=== PATIENT | female | born 1990 | race Caucasian/White ===

== ENCOUNTER 2021-04-24 06:55 | Day surgery (SDC) | payer OTHER ==
[~2021-04-24] VITALS: Ht 165.1 cm; Wt 104.5 kg
[~2021-04-24 06:55] MED LIST: CLARITIN-D 241 EACH; MULTI VITAMIN1 EACH
[2021-04-24] MEDS ORDERED: IBUPROFEN600 MG PO (09:15)
[2021-04-24] MEDS ORDERED: OXYCODON-ACETA1 EAC2 PO (09:16)
[2021-04-24] MEDS ORDERED: ACETAMINOPHEN500 MG PO (09:16)
--- NOTE | 2021-04-24 09:33 | NUR ---
04/24/21 0933 Marla Aguilera 0859- PT ARRIVES TO PACU NONAROUSABLE TO NOXIOUS STIMULI WITH AN OPA IN PLACE. RESP EVEN AND UNLABORED. OXYGEN SAT HIGH 90'S TO 100% ON 8L VIA MASK.
--- NOTE | 2021-04-24 17:39 | NUR ---
1200 PT HAS BEEN UP AMB. DOING WELL. TAKING JELLO AND DRINKING FLUIDS. MOM HERE TO GET PT.
--- NOTE | 2021-04-25 09:44 | OR ---
[facility] [address], [place] [address] Signed DATE OF OPERATION: 04/24/2021 SURGEON: Louis Strickland MD PREOPERATIVE DIAGNOSIS: Chronic acalculous cholecystitis (ejection fraction CCK-HIDA test 0% with reproduction of symptoms). POSTOPERATIVE DIAGNOSIS: Chronic acalculous cholecystitis (ejection fraction CCK-HIDA test 0% with reproduction of symptoms). PROCEDURES: 1. Laparoscopic cholecystectomy with intraoperative cholangiogram. 2. Surgeon-directed fluoroscopy. ANESTHESIA: General endotracheal, [place]oo [place], [employer] and local 20 mL of 0.25% Marcaine with epinephrine. INDICATION: This 30-year-old white woman is a patient of Funmilayo Jean and has had typical symptoms of biliary colic including right subcostal and right subscapular pain worse following fatty food. Gallbladder ultrasound was performed on February 13, 2021 which was normal. She underwent a CCK-HIDA test on March 04 showing essentially no ejection fraction. She did experience symptoms during the injection as well. She has additionally undergone a CT scan, which was said to be normal and she has been empirically treated for a urinary tract infection, which made no impact on her symptoms. She is admitted at this time to undergo cholecystectomy for acalculous cholecystitis. She understands the risks of bleeding, infection, bile duct injury, and other unforeseen complications and wishes to proceed. FINDINGS: The liver was mildly fatty infiltrated. The patient does have abdominal obesity. The gallbladder was chronically inflamed. Once excised, it showed no evidence of stones, only chronic inflammatory change of the mucosa. Cholangiogram was entirely normal. DESCRIPTION OF PROCEDURE: The patient was brought to the operating room, given a general endotracheal anesthetic. Preoperative antibiotic Ancef was given. Sequential compression device stockings were Electronically Signed By: LOUIS STRICKLAND MD 04/25/21 0944 PATIENT NAME: ROJELIO VENTURA OPERATIVE REPORT DATE OF : 89 REPORT #: [id number] PHYSICIAN: LOUIS STRICKLAND MD PCP: FUNMILAYO JEAN PA-C REPORT IS CONFIDENTIAL AND NOT TO BE RELEASED WITHOUT AUTHORIZATION [facility] [address], [place] [address] Signed used and heparin subcutaneously administered. The abdomen was prepared with a chlorhexidine solution and draped sterilely. An infraumbilical incision was made and using an open Asim cannula technique, pneumoperitoneum was achieved to a level of 14 mmHg with carbon dioxide gas. Intraabdominal inspection showed no ascites or carcinomatosis. The gallbladder was largely obscured from view. Three additional trocars were placed in usual configuration in the subxiphoid, right midclavicular, and right anterior axillary line. The gallbladder was elevated cephalad and found to have a few filmy adhesions to the infundibulum. The gallbladder was retracted more fully cephalad and the infundibulum grasped and retracted laterally. Using blunt electrocautery dissection, the triangle of Calot was dissected free. An additional trocar site was placed to allow for a fan retractor to better visualize the cystic duct. Once the cystic duct was fully dissected free, a clip was applied across gallbladder cystic duct junction and a transverse choledochotomy made in the cystic duct. Retrograde milking of the duct showed egress of clear bile. Using an Ramírez-type cholangiocatheter, intraoperative cholangiography was undertaken showing free flow of contrast in the biliary tree with prompt emptying into the duodenum. The biliary tree was very narrow. Overall, certainly no sign of obstruction. There were no filling defects or other abnormalities. The catheter was removed and the cystic duct was triply clipped and divided. The gallbladder dissected free in a retrograde fashion using electrocautery. The gallbladder was extracted through the infraumbilical port site opened on the back table and found to have chronic inflammatory change of the mucosa, but no sign of stones or neoplasm. Irrigation was undertaken of the subhepatic space. There was no sign of bile leak, bleeding, or other problems. Excess irrigation fluid was suctioned free. Removal of the trocars was undertaken. This supplemental trocar in the epigastric area had some oozing of blood and therefore, a Esteban-George device was used to secure it with a 0 Vicryl tie. This allowed for good hemostasis. The other trocar sites were hemostatic. The infraumbilical fascial incision was reapproximated with interrupted 0 Vicryl suture. All wounds were infiltrated with 20 mL of 0.25% Marcaine with epinephrine. The skin was then closed with interrupted 3-0 Vicryl after irrigation. Steri-Strips were applied. The patient was ultimately extubated and transferred to the recovery room in good condition having suffered no complications. Sponge, needle, and counts reported as correct x3. MD CHARLIE Chandra/RAGHAVENDRAL /[id number] Electronically Signed By: LOUIS STRICKLAND MD 04/25/21 0944 PATIENT NAME: ROJELIO VENTURA ENA OPERATIVE REPORT DATE OF : [birth year] REPORT #: [id number] PHYSICIAN: LOUIS STRICKLAND MD PCP: FUNMILAYO JEAN PA-C REPORT IS CONFIDENTIAL AND NOT TO BE RELEASED WITHOUT AUTHORIZATION [address] [place], [place] [address] Signed cc: LAURA Lockwood Copies: ~ Electronically Signed By: LOUIS STRICKLAND MD 04/25/21 0944 PATIENT NAME: ROJELIO VENTURA OPERATIVE REPORT DATE OF : [birth year] REPORT #: [id number] PHYSICIAN: LOUIS STRICKLAND MD PCP: FUNMILAYO JEAN PA-C REPORT IS CONFIDENTIAL AND NOT TO BE RELEASED WITHOUT AUTHORIZATION
--- NOTE | 2021-04-29 15:51 | PATH ---
[facility] [address] [place], [place] [address] Signed SPECIMEN(S): A GALLBLADDER SPECIMEN SOURCE: A. GALLBLADDER CLINICAL HISTORY: Laparoscopic cholecystectomy with possible IOC. Acalculous cholecystitis. FINAL PATHOLOGIC DIAGNOSIS: Gallbladder, cholecystectomy: - Chronic cholecystitis with cholesterolosis. NAL:cml:C2NR MICROSCOPIC EXAMINATION: Histologic sections of all submitted blocks are examined by light microscopy. These findings, together with the gross examination, support the pathologic diagnosis. GROSS DESCRIPTION: The specimen, labeled "SJ, gallbladder," is received in formalin and consists of Specimen: Previously opened gallbladder. Dimensions: 7.5 cm in length and 4.1 cm in inner circumference. Serosa: Violaceous and smooth. Cystic Duct: Unobstructed. Calculi: No calculi are grossly identified within the container or within the gallbladder. Mucosa: [place]-simeon and velvety. Wall thickness: 0.3 cm. Lymph node: No pericystic lymph nodes are grossly identified. Additional: None. [facility] sections are submitted in cassette (A1). JS (under the direct supervision of a pathologist) The Gross Description was prepared using a voice recognition system. The report was reviewed for accuracy; however, sound-alike word errors, addition and/or deletions may occur. If there is any question about this report, please contact Client Services. PERFORMING LABORATORY: The technical component was performed by [facility], [address] [place] [id number] ([employer]: Cheyenne Feldman MD; CLIA# [id number]). PATIENT NAME: ROJELIO VENTURA PATHOLOGY DATE OF : 89 REPORT #: [id number] PHYSICIAN: STEPHANIE NATHAN PCP: FUNMILAYO DELAROSA PA-C REPORT IS CONFIDENTIAL AND NOT TO BE RELEASED WITHOUT AUTHORIZATION [facility] [address] [place], [place] [address] Signed [facility], [address] [place] [id number] (CLIA# [id number]). Diagnostician: Darby Michele MD Pathologist Electronically Signed 04/29/2021 Copies: ~ PATIENT NAME: ROJELIO VENTURA PATHOLOGY DATE OF : [birth year] REPORT #: [id number] PHYSICIAN: STEPHANIE NATHAN PCP: FUNMILAYO DELAROSA PA-C REPORT IS CONFIDENTIAL AND NOT TO BE RELEASED WITHOUT AUTHORIZATION
== END 2021-04-24 12:00 | disposition home or self-care (01) ==
LOC: DS 06:55
PROVIDERS: ATTEND Surgery
PROC: BF12YZZ Fluoroscopy of Gallbladder using Other Contrast (ICD-10-PCS; 2021-04-24)
PROC: 0FT44ZZ Resection of Gallbladder, Percutaneous Endoscopic Approach (ICD-10-PCS; principal; 2021-04-24 09:00)
DX: K81.1 Chronic cholecystitis (principal); E66.01 Morbid (severe) obesity due to excess calories; Z68.38 Body mass index [BMI] 38.0-38.9, adult; Z88.0 Allergy status to penicillin
CPT/HCPCS: 00790; 74300; J1100; J1644; J1885; J2001; J2250; J2405; J2704; J3010; J3490; J7121; Q9967